=== PATIENT | female | born 1975 | race Caucasian/White ===

== ENCOUNTER 2019-05-16 17:56 | Emergency (ER) | payer MEDICAID ==
[~2019-05-16] VITALS: Ht 165.1 cm; Wt 99.8 kg
[2019-05-16 18:04] VITALS: BP_SYST 145
--- NOTE | 2019-05-16 18:16 | NUR ---
Patient to ER bed 01 to gown for evaluation. Side rails up.
--- NOTE | 2019-05-16 18:23 | NUR ---
ER at bedside examining patient.
--- NOTE | 2019-05-16 18:30 | NUR ---
PT ARRIVES FROM HOME W/ C/O CALEB KNEE AND CHEST PAIN 08/24. PT IS FROM HOME AAOX4. NO OTHER C/O AT THE MOMENT.
--- NOTE | 2019-05-16 18:50 | NUR ---
PT GETTING CXR AT THE BEDSIDE
[2019-05-16 18:55] LABS: HEMOGLOBIN 12.4 g/dL (12.0-16.0); LYMPHOCYTES # (AUTO) 3.8 K/uL (1.0-5.5)
--- NOTE | 2019-05-16 19:03 | NUR ---
pt getting an x-ray at the bedside
[2019-05-16 19:13] LABS: BASOPHILS # (AUTO) 0.2 K/uL (0.0-0.2); BASOPHILS % (AUTO) 1.2 % (0.0-2.0); EOSINOPHILS # (AUTO) 0.2 K/uL (0.0-0.4); EOSINOPHILS % (AUTO) 1.8 % (0.0-4.0); HEMATOCRIT 38.7 % (36-48); LYMPHOCYTES % (AUTO) 30.1 % (20.5-51.5); MEAN CORPUSCULAR HEMOGLOBIN 26 pg (27-31); MEAN CORPUSCULAR HGB CONC 32 % (32-36); MEAN CORPUSCULAR VOLUME 82 fL (79.0-98.0); MONOCYTES # (AUTO) 0.6 K/uL (0.0-1.0); MONOCYTES % (AUTO) 4.9 % (1.7-9.3); NEUTROPHILS # (AUTO) 7.7 K/uL (1.8-7.7); PLATELET COUNT (AUTO) 244 K/uL (130-430); PROTHROMBIN TIME 10.1 SECS (9.5-12.5); RED CELL DISTRIBUTION WIDTH 14.3 % (9.0-15.0); WHITE BLOOD COUNT (AUTO) 12.5 K/uL (4.8-10.8)
--- NOTE | 2019-05-16 19:20 | NUR ---
CARE ENDORSED TO MILO FABIAN
[2019-05-16 19:25] LABS: ANION GAP 8 (5-15); CALCIUM 8.5 mg/dL (8.4-11.0); CHLORIDE 98 mmol/L (98-107); CREATININE 0.92 mg/dL (0.55-1.30); GLUCOSE 359 mg/dL (70-99); POTASSIUM 3.6 mmol/L (3.5-5.1); SODIUM SERUM 129 mmol/L (136-145); UREA NITROGEN, BLOOD 10 mg/dL (8-21)
[2019-05-16 19:30] LABS: ALANINE AMINOTRANSFERASE 27 U/L (12-78); ALBUMIN 3.2 g/dL (3.4-4.8); ASPARTATE AMINOTRANSFERASE 18 U/L (10-37); C-REACTIVE PROTEIN QUANT 3.4 mg/dL (0-0.5); FREE T4 (FREE THYROXINE) 1.2 ng/dL (0.6-1.6); TOTAL BILIRUBIN 0.2 mg/dL (0.0-1.0); URIC ACID 4.5 mg/dL (2.4-7.0)
[2019-05-16 19:31] LABS: THYROID STIMULATING HORMONE 1.88 uIu/mL (0.34-4.82)
[2019-05-16 19:32] LABS: GFR AFRICAN AMERICAN 86 mL/min (>90)
[2019-05-16 19:34] LABS: BARBITURATE, URINE NEGATIVE (NEG <=200); BENZODIAZEPINE, URINE NEGATIVE (NEG <=150); CANNABINOID, URINE NEGATIVE (NEG <=50); COCAINE, URINE NEGATIVE (NEG <=150); METHAMPHETAMINES SCREEN,URINE NEGATIVE (NEG <=500); OPIATE, URINE NEGATIVE (NEG <=100); PHENCYCLIDINE SCREEN,URINE NEGATIVE (NEG <=25); UR TRICYCLIC ANTIDEPRESSANTS NEGATIVE (NEG <=300); URINE AMPHETAMINE NEGATIVE (NEG <=500); URINE METHADONE NEGATIVE (NEG <=200); URINE OXYCODONE SCREEN NEGATIVE (NEG <=100); URINE PROPOXYPHENE SCREEN NEGATIVE (NEG <=300)
[2019-05-16 19:55] LABS: ERYTHROCYTE SEDIMENTATION RATE 34 MM/HR (0-20)
[2019-05-16] MEDS ORDERED: NACL 0.9% 1,000 ML IV ONE (22:00)
--- NOTE | 2019-05-16 22:09 | NUR ---
Dr. Banegas at bedside speaking to patient.
--- NOTE | 2019-05-16 23:09 | NUR ---
Glenny from [employer] called and stated patient was accepted into [facility] on [address] Room number [address] Fermin Villalba is the accepting physician. Number for report is .
--- NOTE | 2019-05-17 00:13 | NUR ---
Pt ambulated with steady gait to bathroom. Tolerated well. Will cont. to cardiac/O2 monitor.
--- NOTE | 2019-05-17 00:14 | NUR ---
pt states she feels chest pain. ER MD Dr. Banegas made aware.
[2019-05-17] MEDS ORDERED: NITROGLYCERIN 0.4 MG TAB.SUBL SL ONE (00:30)
--- NOTE | 2019-05-17 00:40 | NUR ---
Pt denied nitroglycerin SL. ER MD Dr. Banegas made aware.
[2019-05-17] MEDS ORDERED: IBUPROFEN 600 MG TABLET PO ONE (00:45)
--- NOTE | 2019-05-17 00:50 | NUR ---
Pt states that she has chest pain. However, she does not want IV medications. ER MD made aware. Pt requested to have ibuprofen. Pt medicated with ibuprofen PO per MD order.
[2019-05-17 01:00] VITALS: BP_SYST 128
--- NOTE | 2019-05-17 01:00 | NUR ---
Patient to be transferred to [facility]. Is being transferred due to higher level of care. Receiving facility has accepting physician and available space. ER physician has signed transfer form. Patient or responsible constitution party has agreed to transfer and signed form. Patient belongings inventoried and will be sent with patient. Copy of nursing notes, lab reports, EKG, Physicians Orders and X-rays to be sent with patient. Report called to RUI Tong at receiving facility. Receiving physician is Dr. Villalba. [facility] [place] ambulance service has been called for transfer. ETA is now.
== END 2019-05-17 01:00 | disposition short-term general hospital (02) ==
LOC: SED 17:56
DX: R00.0 Tachycardia, unspecified (principal); R07.89 Other chest pain; E11.9 Type 2 diabetes mellitus without complications
CPT/HCPCS: 36415; 71045; 73560; 80053; 80307; 81025; 84145; 84439; 84443; 84484; 84550; 85025; 85379; 85610; 85651; 85730; 86140; 99285; J7030

== ENCOUNTER 2021-09-23 12:03 | Emergency (ER) | payer MEDICAID ==
[~2021-09-23] VITALS: Ht 162.6 cm; Wt 99.8 kg
[~2021-09-23 12:03] MED LIST: CLIN-22 PO; IBUP-1969 PO
[2021-09-23 12:10] VITALS: BP_SYST 120
--- NOTE | 2021-09-23 12:16 | NUR ---
PT TRIAGED AND PLACED IN ED WAITING ROOM FOR AVAILABLE BED, MADE AWARE OF MSE NEEDS
--- NOTE | 2021-09-23 12:19 | NUR ---
Patient to ER bed 6 to gown for evaluation. Side rails up. Report given to RUI KIM.
--- NOTE | 2021-09-23 12:20 | NUR ---
PT CAME IN FROM HOME STATES HER PACKING CAME OUT LAST NIGHT FROM [facility] I&D PERFORMED ON 09/13/21 AND WOULD LIKE WOUND CHECKED. REPORTS PAIN IN THE AREA BUT TAKING MOTRIN AT HOME WITH SOME RELIEF. PT IS AMBULATORY, AAOX4, VSS
--- NOTE | 2021-09-23 12:38 | NUR ---
FIRST CONTACT WITH PT. REPORTS SHE HAD AN I&D TO [facility] ON 09/13 AND PACKING CAME OUT YESTERDAY. PT STATES SHE WAS BLEEDING, NOW RESOLVED. PT STATES SHE IS A DIABETIC AND WANTS HER WOUND CHECK. DENIES FEVER, CHILLS, ODOR.
--- NOTE | 2021-09-23 13:25 | NUR ---
Dr Deras placed orders for patient
[2021-09-23] MEDS ORDERED: BACI15OI13 TP (13:27)
[2021-09-23] MEDS ORDERED: BACITRACIN ZINC 15 GM TOPICAL OINTMENT TP ONE (13:30)
[2021-09-23] MEDS ORDERED: BACITRACIN 1 GM OINT TP ONE (14:00)
--- NOTE | 2021-09-23 14:01 | NUR ---
BACITRACIN WITH ZINC NOT GIVEN, CHARTED IN ERROR.
--- NOTE | 2021-09-23 14:05 | NUR ---
DC INSTRUCTIONS GIVEN AND DISCUSSED, RX REVIEWED. QUESTIONS ANSWERED. INSTRUCTED ON WOUND CARE. VERB UNDERSTANDING. VSS. PT IS STABLE FOR DC HOME
[2021-09-23 14:14] VITALS: BP_SYST 135
== END 2021-09-23 14:05 | disposition home or self-care (01) ==
LOC: SED 12:03
DX: L02.214 Cutaneous abscess of groin (principal); E11.9 Type 2 diabetes mellitus without complications; Z48.01 Encounter for change or removal of surgical wound dressing; Z88.0 Allergy status to penicillin
CPT/HCPCS: 99283

== ENCOUNTER 2022-01-26 13:49 | Emergency (ER) | payer MEDICAID ==
[~2022-01-26] VITALS: Ht 165.1 cm; Wt 102.1 kg
[~2022-01-26 13:49] MED LIST changes: +BACI15OI13 TP
[2022-01-26 14:00] VITALS: BP_SYST 158
[2022-01-26] MEDS ORDERED: ASPIRIN 325 MG TABLET PO ONE (14:00)
[2022-01-26] MEDS ORDERED: MORPHINE 4 MG INJ. 4 MG/ML VIAL IVP ONE (14:00)
[2022-01-26] MEDS ORDERED: NITROGLYCERIN 1 INCH (GM) OINT. TP ONE (14:00)
[2022-01-26 14:45] LABS: BASOPHILS % (AUTO) 0.1 % (0.0-2.0); EOSINOPHILS # (AUTO) 0.3 K/uL (0.0-0.4); EOSINOPHILS % (AUTO) 2.1 % (0.0-4.0); HEMATOCRIT 40.8 % (36-48); HEMOGLOBIN 13.6 g/dL (12.0-16.0); LYMPHOCYTES # (AUTO) 4.2 K/uL (1.0-5.5); LYMPHOCYTES % (AUTO) 29.2 % (20.5-51.5); MEAN CORPUSCULAR HEMOGLOBIN 28 pg (27-31); MEAN CORPUSCULAR HGB CONC 33 % (32-36); MEAN CORPUSCULAR VOLUME 82 fL (79.0-98.0); MONOCYTES # (AUTO) 0.7 K/uL (0.0-1.0); MONOCYTES % (AUTO) 4.6 % (1.7-9.3); NEUTROPHILS # (AUTO) 9.2 K/uL (1.8-7.7); PLATELET COUNT (AUTO) 223 K/uL (130-430); RED BLOOD CELL COUNT(AUTO) 4.96 MIL/uL (4.2-6.2); RED CELL DISTRIBUTION WIDTH 14.3 % (9.0-15.0); WHITE BLOOD COUNT (AUTO) 14.4 K/uL (4.8-10.8)
[2022-01-26 15:14] LABS: CALCIUM 8.6 mg/dL (8.4-11.0); CREATININE 1.03 mg/dL (0.55-1.30)
[2022-01-26] MEDS ORDERED: NITROGLYCERIN 1 INCH (GM) OINT. ONE (15:20)
[2022-01-26 15:27] LABS: ALBUMIN 3.1 g/dL (3.4-4.8); TOTAL BILIRUBIN 0.3 mg/dL (0.0-1.0)
[2022-01-26 18:30] VITALS: BP_SYST 143
== END 2022-01-26 18:30 | disposition home or self-care (01) ==
LOC: SED 13:49
DX: R07.9 Chest pain, unspecified (principal); R06.02 Shortness of breath; R20.2 Paresthesia of skin; E11.9 Type 2 diabetes mellitus without complications; Z88.0 Allergy status to penicillin; Z79.899 Other long term (current) drug therapy
CPT/HCPCS: 36415; 71045; 80053; 83880; 84484; 85025; 85379; 93005; 99284

== ENCOUNTER 2022-07-08 16:31 | Emergency (ER) | payer MEDICAID ==
[~2022-07-08] VITALS: Ht 165.1 cm; Wt 99.8 kg
--- NOTE | 2022-07-08 16:32 | NUR ---
PT RECEIVED, CARE ASSUMED. PT A/OX4. PT PRESENTS SELF TO ER WTIH C/O CHEST PAINS X7 DAYS. CONNECTED TO TELE MONITOR: ST [address]. FEATHER MAKER ADMINISTERING ECG
[2022-07-08 16:35] VITALS: BP_SYST 146
[2022-07-08 17:06] LABS: BASOPHILS # (AUTO) 0.1 K/uL (0.0-0.2); BASOPHILS % (AUTO) 0.7 % (0.0-2.0); EOSINOPHILS # (AUTO) 0.2 K/uL (0.0-0.4); EOSINOPHILS % (AUTO) 1.9 % (0.0-4.0); HEMATOCRIT 40.7 % (36-48); HEMOGLOBIN 13.5 g/dL (12.0-16.0); LYMPHOCYTES # (AUTO) 2.8 K/uL (1.0-5.5); LYMPHOCYTES % (AUTO) 26.6 % (20.5-51.5); MEAN CORPUSCULAR HEMOGLOBIN 27 pg (27-31); MEAN CORPUSCULAR HGB CONC 33 % (32-36); MEAN CORPUSCULAR VOLUME 82 fL (79.0-98.0); MONOCYTES # (AUTO) 0.5 K/uL (0.0-1.0); MONOCYTES % (AUTO) 5.1 % (1.7-9.3); NEUTROPHILS % (AUTO) 65.7 % (40.0-70.0); PLATELET COUNT (AUTO) 206 K/uL (130-430); RED BLOOD CELL COUNT(AUTO) 4.95 MIL/uL (4.2-6.2); RED CELL DISTRIBUTION WIDTH 13.7 % (9.0-15.0); WHITE BLOOD COUNT (AUTO) 10.6 K/uL (4.8-10.8)
[2022-07-08 17:10] LABS: ANION GAP 11 (5-15); CALCIUM 8.7 mg/dL (8.4-11.0); CHLORIDE 100 mmol/L (98-107); CREATININE 0.66 mg/dL (0.55-1.30); GFR AFRICAN AMERICAN 124 mL/min (>90); GLUCOSE 294 mg/dL (70-99); UREA NITROGEN, BLOOD 12 mg/dL (8-21)
[2022-07-08 17:17] LABS: ALANINE AMINOTRANSFERASE 43 U/L (12-78); ALBUMIN 3.1 g/dL (3.4-4.8); ASPARTATE AMINOTRANSFERASE 29 U/L (10-37); TOTAL BILIRUBIN 0.4 mg/dL (0.0-1.0)
[2022-07-08 17:25] LABS: FREE T4 (FREE THYROXINE) 1.2 ng/dL (0.6-1.6); THYROID STIMULATING HORMONE 1.46 uIu/mL (0.34-4.82)
[2022-07-08 19:07] VITALS: BP_SYST 138
--- NOTE | 2022-07-08 19:09 | NUR ---
Patient given written and verbal discharge instructions and verbalizes understanding. ER MD discussed with patient the results and treatment provided. Patient in stable condition. ID arm band removed. Patient educated on pain management and to follow up with PMD. Pain Scale []. Opportunity for questions provided and answered. Medication side effect fact sheet provided.
== END 2022-07-08 19:07 | disposition home or self-care (01) ==
LOC: SED 16:31
DX: R00.2 Palpitations (principal); R07.9 Chest pain, unspecified; E11.9 Type 2 diabetes mellitus without complications; I10 Essential (primary) hypertension; Z88.0 Allergy status to penicillin; Z79.899 Other long term (current) drug therapy
CPT/HCPCS: 36415; 71045; 80053; 82550; 83880; 84439; 84443; 84484; 85025; 99284

== ENCOUNTER 2024-01-22 17:03 | Emergency (ER) | payer MEDICAID ==
[~2024-01-22] VITALS: Ht 152.4 cm; Wt 99.8 kg
[2024-01-22 17:20] VITALS: BP_SYST 162; PULSE 111; RESP 18; TEMP 97.9; O2SAT 98
[2024-01-22] MEDS: NACL 0.9% 1,000 ML IV ONE (17:30)
[2024-01-22 18:05] LABS: BASOPHILS # (AUTO) 0.1 K/uL (0.0-0.2); BASOPHILS % (AUTO) 0.8 % (0.0-2.0); EOSINOPHILS # (AUTO) 0.2 K/uL (0.0-0.4); EOSINOPHILS % (AUTO) 1.6 % (0.0-4.0); HEMATOCRIT 42.4 % (36-48); HEMOGLOBIN 13.9 g/dL (12.0-16.0); LYMPHOCYTES # (AUTO) 4.1 K/uL (1.0-5.5); LYMPHOCYTES % (AUTO) 29.2 % (20.5-51.5); MEAN CORPUSCULAR HEMOGLOBIN 27 pg (27-31); MEAN CORPUSCULAR HGB CONC 33 % (32-36); MEAN CORPUSCULAR VOLUME 82 fL (79.0-98.0); MONOCYTES # (AUTO) 0.6 K/uL (0.0-1.0); MONOCYTES % (AUTO) 4.5 % (1.7-9.3); NEUTROPHILS % (AUTO) 63.9 % (40.0-70.0); PLATELET COUNT (AUTO) 243 K/uL (130-430); RED BLOOD CELL COUNT(AUTO) 5.15 MIL/uL (4.2-6.2); RED CELL DISTRIBUTION WIDTH 14.7 % (9.0-15.0); WHITE BLOOD COUNT (AUTO) 14.1 K/uL (4.8-10.8)
[2024-01-22 18:29] LABS: ANION GAP 10 (5-15); CALCIUM 9.4 mg/dL (8.4-11.0); CARBON DIOXIDE 24 mmol/L (23-29); CHLORIDE 100 mmol/L (98-107); CREATINE KINASE, TOTAL 64 U/L (26-192); CREATININE 0.73 mg/dL (0.55-1.30); GFR AFRICAN AMERICAN 109 mL/min (>90); GFR NON AFRICAN-AMERICAN 90 mL/min (>90); GLUCOSE 304 mg/dL (74-106); POTASSIUM 4.1 mmol/L (3.5-5.1); SODIUM SERUM 134 mmol/L (136-145); UREA NITROGEN, BLOOD 14 mg/dL (8-21)
[2024-01-22] MEDS: KETOROLAC TROMETHAMINE 30 MG VIAL IM ONE (19:36)
[2024-01-22] MEDS: ASPIRIN 81 MG TAB.CHEW PO ONE (19:36)
[2024-01-22 20:15] VITALS: TEMP 98.1
[2024-01-22 21:15] VITALS: BP_SYST 134; PULSE 91; RESP 18; O2SAT 98
== END 2024-01-22 21:20 | disposition home or self-care (01) ==
LOC: SED 17:03
DX: R07.89 Other chest pain (principal); R06.02 Shortness of breath; R00.2 Palpitations; I10 Essential (primary) hypertension; E11.9 Type 2 diabetes mellitus without complications; Z88.0 Allergy status to penicillin; Z79.899 Other long term (current) drug therapy; Z79.2 Long term (current) use of antibiotics
CPT/HCPCS: 99285; 71045; 80048; 82550; 83880; 85025; 85379; 84484; 36415; 93005; 96372; J1885